=== PATIENT | female | born 1930 | race African-American/Black ===

== ENCOUNTER 2016-11-05 09:41 | Inpatient (IN) | payer MEDICARE ==
[~2016-11-05] VITALS: Ht 157.5 cm; Wt 59.0 kg
[~2016-11-05 09:41] MED LIST: AMLO5TAB2 PO; APIX2.5T PO; ASPI-482 PO; DICY10CA3 PO; DILT180C73 PO; HYDR-2869 PO; LOSA100T6 PO; LOSA25TA PO; METO25TA4 PO; TAMS0.4C97 PO; WATER PILL
[2016-11-05] MEDS ORDERED: 0.9 % SODIUM CHLORIDE 10 ML DISP.SYRIN. IV PRN (10:00)
--- NOTE | 2016-11-05 10:12 | EKG ---
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
[2016-11-05] MEDS ORDERED: IV NORMAL SALINE 1000ML BAG 1,000 ML IV SCH (10:15)
[2016-11-05] MEDS ORDERED: ASPIRIN CHEWABLE 81 MG TABLET. PO ONE (10:15)
--- NOTE | 2016-11-05 10:16 | PHYS DOC ---
Past Medical History Past Medical History: CVA, High Cholesterol, Heart Disease, Hypertension Past Surgical History: Hysterectomy, Knee Replacement Additional Past Surgical Histo: LEFT SHOULDER Alcohol Use: None Drug Use: None Adult General Chief Complaint Chief Complaint: CHEST PAIN HPI HPI This is a pleasant 86-year-old female with history of hypertension, high cholesterol, questionable history of age or fibrillation and RVR, prior endarterectomy on the left, prior CVA involving the left lower extremity who presents with exertional dyspnea the last day and chest pain that woke her up this morning described as pressure. Patient was a position of comfort resting in her bed when she described chest pressure described as a heaviness with no clear pain over the left breast. It did not radiate to her shoulder, back or neck. It did make her very short of breath with the symptoms. She had a similar episode like this a month and a half ago when she was seen and evaluated for a possible CVA and A. fib and RVR. Patient was seen by cardiology known to have coronary artery disease from prior record provided by [facility]. Patient has had prior endarterectomy of the left carotid back in 2002. Today's episodes are new and the fact that they are associated with no numbness and tingling only chest pressure described as heaviness with no nausea, vomiting, diaphoresis, lightheadedness, dizziness, URI symptoms or fevers. Patient denies any travel outside the country, denies any recent lower extremity swelling or edema. She does have a history of prior cancer in the right breast requiring only lumpectomy without chemoradiation therapy. With her history of A. fib and RVR not any anticoagulation therapy patient is at marked risk for pulmonary embolism. At this point patient has no specific point of numbness and tingling, problems with speaking, aphasia, or memory issues. At this point her chest discomfort is completely dissipated. She is a synthetic resting comfortably. Review of Systems Review of Systems Constitutional: Denies fever or chills she describes generalized fatigue and shortness breath with exertion. Eyes: Denies change in visual acuity, redness, or eye pain [] HENT: Denies nasal congestion or sore throat [] Respiratory: sHe describes significant shortness of breath on exertion. Cardiovascular: No additional information not addressed in HPI [] GI: Denies abdominal pain, nausea, vomiting, bloody stools or diarrhea [] : Denies dysuria or hematuria [] Musculoskeletal: Denies back pain or joint pain [] Integument: Denies rash or skin lesions [] Neurologic: Denies headache, focal weakness or sensory changes [] Endocrine: Denies polyuria or polydipsia [] Current Medications Current Medications Current Medications Medications (Trade) Dose Ordered Sig/Latrell Start Time Stop Time Status Last Admin Dose Admin Aspirin (Children'S Aspirin) 324 mg 1X ONCE 11/05/16 10:15 11/05/16 10:16 DC 11/05/16 10:38 324 MG Diltiazem HCl (Cardizem) 20 mg 1X ONCE 11/05/16 10:30 11/05/16 10:31 DC 11/05/16 10:41 20 MG Sodium Chloride (Normal Saline Flush) 10 ml QSHIFT PRN 11/05/16 10:00 Allergies Allergies Allergies Coded Allergies Type Severity Reaction Last Updated Verified Penicillins Allergy Intermediate Rash 05/30/13 Yes Physical Exam Physical Exam Vital signs are noted to be mildly hypertensive and very tachycardic into the 110s. She is not tachypnea or hypotensive she is not hypoxic. Constitutional: Well developed, well nourished, no acute distress, non-toxic appearance. She is not diaphoretic but mildly anxious. HENT: Normocephalic, atraumatic, bilateral external ears normal, oropharynx moist, no oral exudates, nose normal. [] Eyes: PERRLA, EOMI, conjunctiva normal, no discharge. [] Neck: He has no carotid bruits there is a well-healed scar over the left carotid artery. Neck has full range of motion Cardiovascular: Her heart has an irregular rate and rhythm with no murmurs gallops or rubs. Lungs & Thorax: Bilateral breath sounds clear to auscultation [] Abdomen: Bowel sounds normal, soft, no tenderness, no masses, no pulsatile masses. [] Skin: Warm, dry, no erythema, no rash. [] Back: No tenderness, no CVA tenderness. [] Extremities: No tenderness, no cyanosis, no clubbing, ROM intact, no edema. sHe has no Homans sign no swelling or tenderness in her calves bilaterally. Neurologic: Alert and oriented X 3, normal motor function, normal sensory function, no focal deficits noted. [] Psychologic: Affect normal, judgement normal, mood normal. [] Patient has no focal complaints. Current Patient Data Vital Signs Vital Signs Date Time Temp Pulse Resp B/P (MAP) Pulse Ox O2 Delivery O2 Flow Rate FiO2 11/05/16 11:49 84 165/78 (107) 97 Room Air 11/05/16 11:19 14 11/05/16 09:50 97.7 97.7 Lab Values Laboratory Tests Test 11/05/16 11:00 White Blood Count 8.9 x10^3/uL (4.0-11.0) Red Blood Count 4.25 x10^6/uL (3.50-5.40) Hemoglobin 11.9 g/dL (12.0-15.5) L Hematocrit 36.9 % (36.0-47.0) Mean Corpuscular Volume 87 fL (79-100) Mean Corpuscular Hemoglobin 28 pg (25-35) Mean Corpuscular Hemoglobin Concent 32 g/dL (31-37) Red Cell Distribution Width 14.6 % (11.5-14.5) H Platelet Count 221 x10^3/uL (140-400) Neutrophils (%) (Auto) 68 % (31-73) Lymphocytes (%) (Auto) 22 % (24-48) L Monocytes (%) (Auto) 9 % (0-9) Eosinophils (%) (Auto) 1 % (0-3) Basophils (%) (Auto) 0 % (0-3) Neutrophils # (Auto) 6.1 x10^3uL (1.8-7.7) Lymphocytes # (Auto) 1.9 x10^3/uL (1.0-4.8) Monocytes # (Auto) 0.8 x10^3/uL (0.0-1.1) Eosinophils # (Auto) 0.0 x10^3/uL (0.0-0.7) Basophils # (Auto) 0.0 x10^3/uL (0.0-0.2) Sodium Level 143 mmol/L (136-145) Potassium Level 3.7 mmol/L (3.5-5.1) Chloride Level 107 mmol/L (98-107) Carbon Dioxide Level 24 mmol/L (21-32) Anion Gap 12 (6-14) Blood Urea Nitrogen 19 mg/dL (7-20) Creatinine 0.8 mg/dL (0.6-1.0) Estimated GFR (Cockcroft-Gault) 82.7 Glucose Level 113 mg/dL (70-99) H Calcium Level 9.6 mg/dL (8.5-10.1) Magnesium Level 1.9 mg/dL (1.8-2.4) Total Bilirubin 0.2 mg/dL (0.2-1.0) Direct Bilirubin 0.1 mg/dL (0.0-0.2) Aspartate Amino Transferase (AST) 16 U/L (15-37) Alanine Aminotransferase (ALT) 17 U/L (14-59) Alkaline Phosphatase 95 U/L (46-116) Creatine Kinase 32 U/L (26-192) Creatine Kinase MB (Mass) 0.6 ng/mL (0.0-3.6) Creatine Kinase MB Relative Index 1.9 % (0-4) Troponin I Quantitative 0.021 ng/mL (0.000-0.055) FQ-Wvh-[id number]-Type Natriuretic Peptide 1228 pg/mL (0-449) H Total Protein 7.6 g/dL (6.4-8.2) Albumin 3.5 g/dL (3.4-5.0) Lipase 204 U/L (73-393) Thyroid Stimulating Hormone (TSH) 1.547 uIU/mL (0.358-3.74) Laboratory Tests 11/05/16 11:00 Laboratory Tests 11/05/16 11:00 EKG EKG [] EKG read by Dr. Morgan. At 9:53 AM demonstrates 11/05/2016 a irregular irregular rhythm likely A. fib with heart rate of 105. Was not identified. There is a question will sawtooth pattern located in the one this may represent atrial flutter but given her heart rate is likely A. fib. She also has a normal QTC at 432 and QRS width of 72 which is normal. There is no ST segment or T- wave elevations or inversions consistent with acute coronary ischemia Radiology/Procedures Radiology/Procedures [] [address] [place], [place] [id number] IMAGING REPORT Signed PATIENT: KAM JOHNSTON ACCOUNT: [id number] : 1930 LOCATION: [address] [place] [address] AGE: 86 SEX: F EXAM STATUS: ADM IN ORD. PHYSICIAN: YRIS LABOY APRN REASON: AFIB, CVA syndrome PROCEDURE: ECHOCARDIOGRAM W BUBBLE STUDY APPROVED REPORT EXAM: Two-dimensional and M-mode echocardiogram with Doppler, color Doppler with contrast. Other Information Quality : Average Rhythm : Atrial Flutter INDICATION CVA/TIA Echo Enhancing Agent Indication: Rule Out Septal Defect Agent/Amount Used: Agitated Saline 8mL 2D DIMENSIONS RVDd 3.0 (2.9-3.5cm) Left Atrium(2D) 3.7 (1.6-4.0cm) IVSd 1.5 (0.7-1.1cm) Aortic Root(2D) 2.7 (2.0-3.7cm) LVDd 3.3 (3.9-5.9cm) LVOT Diameter 1.9 (1.8-2.4cm) PWd 1.4 (0.7-1.1cm) LVDs 2.3 (2.5-4.0cm) FS (%) 29.7 % SV 24.9 ml LVEF(%) 58.1 (>50%) Aortic Valve AoV Peak Mayank. 226.9cm/s AoV VTI 41.0cm AO Peak GR. 20.6mmHg LVOT VTI 14.17cm AO Mean GR. 10mmHg JORGE (VTI) 1.00cm2 Mitral Valve MV E Velocity 120.1cm/s MV E Peak Gr. 5mmHg MV DECEL TIME 220ms MV PHT 50ms MVA (PHT) 4.40cm2 Tricuspid Valve TR P. Velocity 293cm/s RAP ESTIMATE 3mmHg TR Peak Gr. 34mmHg RVSP 37mmHg LEFT VENTRICLE The left ventricle is normal size. There is mild concentric left ventricular hypertrophy. Left ventricle systolic function is normal. The Ejection Fraction is 55-60%. There is normal LV segmental wall motion. Unable to assess diastolic function. There is no ventricular septal defect visualized. RIGHT VENTRICLE The right ventricle is normal size. The right ventricular systolic function is normal. ATRIA The left atrium size is normal. The right atrium size is normal. The interatrial septum is intact with no evidence for an atrial septal defect or patent foramen ovale as noted on 2-D or Doppler imaging. Injection of bubbles documented no interatrial shunt. AORTIC VALVE The aortic valve is calcified and displays decreased opening. Doppler and Color Flow revealed trace aortic regurgitation. Calculated aortic valve area is 1.0 cm2 with maximum pressure gradient of 21mmHg and mean pressure gradient of 10 mmHg. There is mild to moderate valvular aortic stenosis. MITRAL VALVE Mitral annular calcification is moderate. The mitral valve leaflets are calcified. There is no mitral valve stenosis. Doppler and Color Flow revealed mild mitral regurgitation. TRICUSPID VALVE The tricuspid valve is normal in structure and function. Doppler and Color Flow revealed mild tricuspid regurgitation. The PA pressure was estimated at 37 mmHg. There is no tricuspid valve stenosis. PULMONIC VALVE The pulmonic valve is not well visualized. Doppler and Color Flow revealed no pulmonic valvular regurgitation. There is no pulmonic valvular stenosis. GREAT VESSELS The aortic root is normal in size. The ascending aorta is normal in size. The IVC is normal in size and collapses >50% with inspiration. PERICARDIAL EFFUSION There is no evidence of significant pericardial effusion. Critical Notification Critical Value: No <Conclusion> The left ventricle is normal size. Left ventricle systolic function is normal. The Ejection Fraction is 55-60%. There is mild concentric left ventricular hypertrophy. The interatrial septum is intact with no evidence for an atrial septal defect or patent foramen ovale as noted on 2-D or Doppler imaging. Injection of bubbles documented no interatrial shunt. Calculated aortic valve area is 1.0 cm2 with maximum pressure gradient of 21mmHg and mean pressure gradient of 10 mmHg. There is mild to moderate valvular aortic stenosis. Doppler and Color Flow revealed trace aortic regurgitation. Doppler and Color Flow revealed mild mitral regurgitation. Doppler and Color Flow revealed mild tricuspid regurgitation. The PA pressure was estimated at 37 mmHg. DICTATED and SIGNED BY: AYSE MELGAR MD DATE: 09/27/16 1740 CC: YRIS LABOY APRN; AYSE MELGAR MD; MARLENY BALDERAS MD; FENG NUNES MD ~ IMAGING REPORT Signed PATIENT: KAM JOHNSTON ACCOUNT: [id number] : 1930 LOCATION: ER AGE: 86 SEX: F EXAM STATUS: PRE ER ORD. PHYSICIAN: JOSE MORGAN MD REASON: chest pain PROCEDURE: PORTABLE CHEST 1V Indication chest pain. A single view of the chest was obtained. Comparison is made to an examination 09/27/2016. Heart size is slightly enlarged but unchanged. There is no gross congestive heart failure. There is no consolidated pneumonia significant pleural fluid collection or pneumothorax. Again there is a possible nodule in the right upper lobe. The appearance is unchanged relative to the previous plain film exam. Continued follow-up establishing stability advised. Left shoulder prosthesis and degenerative changes about the right are noted. IMPRESSION: No acute or focal process is seen in the chest DICTATED and SIGNED BY: CASE BOYLE MD DATE: 11/05/16 1029 CC: JOSE MORGAN MD; MARLENY BALDERAS MD ~ Course & Med Decision Making Course & Med Decision Making Pertinent Labs and Imaging studies reviewed. (See chart for details) Differential diagnosis: Acute myocardial ischemia, heart failure, cardiac tamponade, bronchospasm, pulmonary embolism, pneumothorax, pulmonary infection i.e. bronchitis or pneumonia, upper airway obstruction, anaphylaxis, aspiration , psychogenic, pulmonary contusion, toxidrome, pneumomediastinum, noncardiogenic pulmonary edema or ARDS, COPD, tuberculosis, cystic fibrosis, asthma, high altitude pulmonary edema, valvular dysfunction, cardiac dysrhythmia , stroke, neuromuscular diseases like myasthenia gravis gravis, ALS, Guillain- Miller syndrome, metabolic acidosis to include diabetic ketoacidosis, sepsis, and obstructive disorders like massive obesity considered upon arrival given her history of recent stroke and A. fib and RVR. Patient also have a screening exam done for possible pulmonary embolism to include a CT angiogram of the chest if she did not fact take her antibiotic correlation medications. Was started on Eliquis by cardiology. Impression presents with chest discomfort described as pressure and exertional dyspnea. She only had about an hour with the symptoms prior to arrival. With her other medical problems although she is on Eliquis that she is a caustic presentation of a PE. Her symptoms are intermittent to completely resolved at this time. My concern is actually cardiac ischemia based on a fixed lesion is progressively getting worse. 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 Did review echocardiogram done on 27 September this year. It demonstrated no acute abnormalities. PPatient tells me that their symptoms given during CC are improved. We reviewed labs and radiology reports with patient and any family at bedside. Time is now 11:40 am She is echocardiogram unremarkable, chest x-ray unremarkable, negative troponin , negative proBNP She is pain-free at this time. Furnace Combustion Tester note: Paged for internal medicine at 12:30 PM Furnace Combustion Tester called at of the service Dr. Hutton Consult called back at 12:38 Discussed the case I presented and they agreed with admission. Time of acceptance 12:38 Impression: Dyspnea on exertion possible cardiac ischemia. Disposition: Admission to the hospital with cardiology evaluation Dragon Disclaimer Dragon Disclaimer This electronic medical record was generated, in whole or in part, using a voice recognition dictation system. Departure Departure Impression: Primary Impression: Chest pain Additional Impressions: Hypertension Dyspnea on exertion Disposition: ADMITTED INPATIENT Admitting Physician: Cassia Hutton Condition: GUARDED Referrals: MARLENY BALDERAS MD (PCP) Problem Qualifiers JOSE MORGAN MD Nov 05, 2016 10:16
[2016-11-05] MEDS ORDERED: dilTIAZem IV PUSH 25 MG/5 ML VIAL IVP ONE (10:30)
--- NOTE | 2016-11-05 10:34 | RAD ---
Indication chest pain. A single view of the chest was obtained. Comparison is made to an examination 09/27/2016. Heart size is slightly enlarged but unchanged. There is no gross congestive heart failure. There is no consolidated pneumonia significant pleural fluid collection or pneumothorax. Again there is a possible nodule in the right upper lobe. The appearance is unchanged relative to the previous plain film exam. Continued follow-up establishing stability advised. Left shoulder prosthesis and degenerative changes about the right are noted. IMPRESSION: No acute or focal process is seen in the chest
[2016-11-05 11:17] LABS: BASO % 0 % (0-3); EOS % 1 % (0-3); HEMATOCRIT 36.9 % (36.0-47.0); HEMOGLOBIN 11.9 g/dL (12.0-15.5); LYMPH # 1.9 x10^3/uL (1.0-4.8); LYMPH % 22 % (24-48); MEAN CORPUSCULAR HEMOGLOBIN 28 pg (25-35); MEAN CORPUSCULAR HGB CONC 32 g/dL (31-37); MEAN CORPUSCULAR VOLUME 87 fL (79-100); MONO % 9 % (0-9); NEUT % 68 % (31-73); PLATELET COUNT 221 x10^3/uL (140-400); RED BLOOD COUNT 4.25 x10^6/uL (3.50-5.40); RED CELL DISTRIBUTION WIDTH 14.6 % (11.5-14.5); WHITE BLOOD COUNT 8.9 x10^3/uL (4.0-11.0)
[2016-11-05 11:33] LABS: CALCIUM 9.6 mg/dL (8.5-10.1); CREATININE 0.8 mg/dL (0.6-1.0); GFR 82.7; POTASSIUM 3.7 mmol/L (3.5-5.1)
[2016-11-05 11:39] LABS: ALBUMIN 3.5 g/dL (3.4-5.0); DIRECT BILIRUBIN 0.1 mg/dL (0.0-0.2); MAGNESIUM 1.9 mg/dL (1.8-2.4); TOTAL BILIRUBIN 0.2 mg/dL (0.2-1.0); TOTAL PROTEIN 7.6 g/dL (6.4-8.2)
[2016-11-05 11:46] LABS: CKMB MASS 0.6 ng/mL (0.0-3.6)
[2016-11-05 12:37] LABS: BILIRUBIN,URINE NEGATIVE (NEG); GLUCOSE,URINE NEGATIVE (NEG); NITRITE,URINE NEGATIVE (NEG); PH,URINE 6.5; PROTEIN,URINE NEGATIVE (NEG-TRACE); UROBILINOGEN,URINE 0.2 mg/dL (0.2 mg/dL)
[2016-11-05] MEDS: IV NORMAL SALINE 1000ML BAG 1,000 ML IV SCH (12:42)
[2016-11-05 12:45] LABS: BACTERIA,URINE FEW /HPF (0-FEW); RBC,URINE 0 /HPF (0-2); SQUAMOUS EPITHELIAL CELL,UR FEW /LPF
[2016-11-05] MEDS ORDERED: fentaNYL PF VIAL 100 MCG/2 ML VIAL IV PRN (12:45)
[2016-11-05] MEDS ORDERED: ASPI-630 PO (14:47)
[2016-11-05] MEDS ORDERED: AMLO2.5T PO (14:47)
[2016-11-05] MEDS ORDERED: SIMV20TA3 PO (14:47)
[2016-11-05] MEDS ORDERED: LOSA100T6 PO (14:47)
[2016-11-05 15:00] VITALS: BP 105/69
[2016-11-05 16:09] VITALS: BP 105/69
--- NOTE | 2016-11-05 16:55 | PDOC1 ---
History and Physical Date of Admission Date of Admission 11/05/16 Identification/Chief Complaint Chief Complaint sob Problems: Source Source: Chart review, Patient History of Present Illness History of Present Illness HPI This is a pleasant 86-year-old female with history of hypertension, high cholesterol, questionable history of age or fibrillation and RVR, prior endarterectomy on the left, prior CVA involving the left lower extremity cames for sob today. Pt was here 1 month ago for left side weakness, with right side acute stroke and weakness resolved. echo was unremarkable except . She feels some exertional sob, with chest pain, pressure feeling, no diaphoresis , N/V. Patient has had prior endarterectomy of the left carotid back in 2002. pt looks very calm to me. Past Medical History Cardiovascular: HTN Pulmonary: No pertinent hx CENTRAL NERVOUS SYSTEM: Other GI: Irritable bowel disease Heme/Onc: Cancer Hepatobiliary: No pertinent hx Psych: No pertinent hx Rheumatologic: No pertinent hx Infectious disease: No pertinent hx Renal/: Chronic renal insuff Endocrine: No pertinent hx Past Surgical History Past Surgical History: Total knee replacement, No pertinent history Family History Family History: Hypertension Social History Smoke: No ALCOHOL: none Drugs: None Current Problem List Problem List Problems Medical Problems: (1) Chest pain Status: Acute (2) Dyspnea on exertion Status: Acute (3) Hypertension Status: Acute Current Medications Current Medications Current Medications Medications (Trade) Dose Ordered Sig/Latrell Start Time Stop Time Status Last Admin Dose Admin Aspirin (Children'S Aspirin) 324 mg 1X ONCE 11/05/16 10:15 11/05/16 10:16 DC 11/05/16 10:38 324 MG Diltiazem HCl (Cardizem 24hr Cd) 180 mg DAILY 11/06/16 09:00 Diltiazem HCl (Cardizem) 20 mg 1X ONCE 11/05/16 10:30 11/05/16 10:31 DC 11/05/16 10:41 20 MG Diltiazem HCl 125 mg/Dextrose 125 ml @ 0 mls/hr CONT PRN 11/05/16 15:00 Fentanyl Citrate (Fentanyl 2ml Vial) 50 mcg PRN Q2HR PRN 11/05/16 12:45 11/06/16 12:44 Hydralazine HCl (Apresoline) 50 mg TID 11/05/16 21:00 Metoprolol Tartrate (Lopressor) 25 mg BID 11/05/16 21:00 Ondansetron HCl (Zofran) 4 mg PRN Q8HRS PRN 11/05/16 12:45 11/06/16 12:44 Sodium Chloride 1,000 ml @ 80 mls/hr [id number] 11/05/16 12:42 11/06/16 12:41 Sodium Chloride (Normal Saline Flush) 10 ml QSHIFT PRN 11/05/16 10:00 Allergies Allergies Allergies Coded Allergies Type Severity Reaction Last Updated Verified Penicillins Allergy Intermediate Rash 05/30/13 Yes ROS Review of System CONSTITUTIONAL: No fever or chills EYES: No recent changes SKIN: No rash or itching CARDIOVASCULAR: No chest pain, syncope, palpitations, or edema RESPIRATORY: No SOB or cough GASTROINTESTINAL: No nausea, vomiting or abdominal pain NEUROLOGICAL: No headaches or weakness ENDOCRINE: No cold or heat intolerance GENITOURINARY: No urgency or frequency of urination MUSCULOSKELETAL: No back pain or joint pain LYMPHATICS: No enlarged lymph nodes PSYCHIATRIC: No anxiety or depression Physical Exam Physical Exam GEN.: No apparent distress. Alert and oriented. HEENT: Head is normocephalic, atraumatic NECK: Supple. LUNGS: Clear to auscultation. HEART: RRR, S1, S2 present. Peripheral pulses intact ABDOMEN: Soft, nontender. Positive bowel sounds. EXTREMITIES: Without any cyanosis. NEUROLOGIC: Normal speech, normal tone PSYCHIATRIC: Normal affect, normal mood. SKIN: No ulcerations Vitals Vitals Vital Signs Date Time Temp Pulse Resp B/P (MAP) Pulse Ox O2 Delivery O2 Flow Rate FiO2 11/05/16 16:09 97.8 105 18 105/69 (81) 99 Room Air 97.8 Labs Labs Laboratory Tests Test 11/05/16 11:00 11/05/16 12:25 White Blood Count 8.9 x10^3/uL (4.0-11.0) Red Blood Count 4.25 x10^6/uL (3.50-5.40) Hemoglobin 11.9 g/dL (12.0-15.5) Hematocrit 36.9 % (36.0-47.0) Mean Corpuscular Volume 87 fL (79-100) Mean Corpuscular Hemoglobin 28 pg (25-35) Mean Corpuscular Hemoglobin Concent 32 g/dL (31-37) Red Cell Distribution Width 14.6 % (11.5-14.5) Platelet Count 221 x10^3/uL (140-400) Neutrophils (%) (Auto) 68 % (31-73) Lymphocytes (%) (Auto) 22 % (24-48) Monocytes (%) (Auto) 9 % (0-9) Eosinophils (%) (Auto) 1 % (0-3) Basophils (%) (Auto) 0 % (0-3) Neutrophils # (Auto) 6.1 x10^3uL (1.8-7.7) Lymphocytes # (Auto) 1.9 x10^3/uL (1.0-4.8) Monocytes # (Auto) 0.8 x10^3/uL (0.0-1.1) Eosinophils # (Auto) 0.0 x10^3/uL (0.0-0.7) Basophils # (Auto) 0.0 x10^3/uL (0.0-0.2) Sodium Level 143 mmol/L (136-145) Potassium Level 3.7 mmol/L (3.5-5.1) Chloride Level 107 mmol/L (98-107) Carbon Dioxide Level 24 mmol/L (21-32) Anion Gap 12 (6-14) Blood Urea Nitrogen 19 mg/dL (7-20) Creatinine 0.8 mg/dL (0.6-1.0) Estimated GFR (Cockcroft-Gault) 82.7 Glucose Level 113 mg/dL (70-99) Calcium Level 9.6 mg/dL (8.5-10.1) Magnesium Level 1.9 mg/dL (1.8-2.4) Total Bilirubin 0.2 mg/dL (0.2-1.0) Direct Bilirubin 0.1 mg/dL (0.0-0.2) Aspartate Amino Transf (AST/SGOT) 16 U/L (15-37) Alanine Aminotransferase (ALT/SGPT) 17 U/L (14-59) Alkaline Phosphatase 95 U/L (46-116) Creatine Kinase 32 U/L (26-192) Creatine Kinase MB (Mass) 0.6 ng/mL (0.0-3.6) Creatine Kinase MB Relative Index 1.9 % (0-4) Troponin I Quantitative 0.021 ng/mL (0.000-0.055) UI-Req-E-Type Natriuretic Peptide 1228 pg/mL (0-449) Total Protein 7.6 g/dL (6.4-8.2) Albumin 3.5 g/dL (3.4-5.0) Lipase 204 U/L (73-393) Thyroid Stimulating Hormone (TSH) 1.547 uIU/mL (0.358-3.74) Urine Collection Type Unknown Urine Color Yellow Urine Clarity Clear Urine pH 6.5 Urine Specific [place] <=1.005 Urine Protein Negative mg/dL (NEG-TRACE) Urine Glucose (UA) Negative mg/dL (NEG) Urine Ketones (Stick) Negative mg/dL (NEG) Urine Blood Negative (NEG) Urine Nitrite Negative (NEG) Urine Bilirubin Negative (NEG) Urine Urobilinogen Dipstick 0.2 mg/dL (0.2 mg/dL) Urine Leukocyte Esterase Small (NEG) Urine RBC 0 /HPF (0-2) Urine WBC 5-10 /HPF (0-4) Urine Squamous Epithelial Cells Few /LPF Urine Bacteria Few /HPF (0-FEW) Laboratory Tests Test 11/05/16 11:00 11/05/16 12:25 White Blood Count 8.9 x10^3/uL (4.0-11.0) Red Blood Count 4.25 x10^6/uL (3.50-5.40) Hemoglobin 11.9 g/dL (12.0-15.5) Hematocrit 36.9 % (36.0-47.0) Mean Corpuscular Volume 87 fL (79-100) Mean Corpuscular Hemoglobin 28 pg (25-35) Mean Corpuscular Hemoglobin Concent 32 g/dL (31-37) Red Cell Distribution Width 14.6 % (11.5-14.5) Platelet Count 221 x10^3/uL (140-400) Neutrophils (%) (Auto) 68 % (31-73) Lymphocytes (%) (Auto) 22 % (24-48) Monocytes (%) (Auto) 9 % (0-9) Eosinophils (%) (Auto) 1 % (0-3) Basophils (%) (Auto) 0 % (0-3) Neutrophils # (Auto) 6.1 x10^3uL (1.8-7.7) Lymphocytes # (Auto) 1.9 x10^3/uL (1.0-4.8) Monocytes # (Auto) 0.8 x10^3/uL (0.0-1.1) Eosinophils # (Auto) 0.0 x10^3/uL (0.0-0.7) Basophils # (Auto) 0.0 x10^3/uL (0.0-0.2) Sodium Level 143 mmol/L (136-145) Potassium Level 3.7 mmol/L (3.5-5.1) Chloride Level 107 mmol/L (98-107) Carbon Dioxide Level 24 mmol/L (21-32) Anion Gap 12 (6-14) Blood Urea Nitrogen 19 mg/dL (7-20) Creatinine 0.8 mg/dL (0.6-1.0) Estimated GFR (Cockcroft-Gault) 82.7 Glucose Level 113 mg/dL (70-99) Calcium Level 9.6 mg/dL (8.5-10.1) Magnesium Level 1.9 mg/dL (1.8-2.4) Total Bilirubin 0.2 mg/dL (0.2-1.0) Direct Bilirubin 0.1 mg/dL (0.0-0.2) Aspartate Amino Transf (AST/SGOT) 16 U/L (15-37) Alanine Aminotransferase (ALT/SGPT) 17 U/L (14-59) Alkaline Phosphatase 95 U/L (46-116) Creatine Kinase 32 U/L (26-192) Creatine Kinase MB (Mass) 0.6 ng/mL (0.0-3.6) Creatine Kinase MB Relative Index 1.9 % (0-4) Troponin I Quantitative 0.021 ng/mL (0.000-0.055) AV-Vzl-[id number]-Type Natriuretic Peptide 1228 pg/mL (0-449) Total Protein 7.6 g/dL (6.4-8.2) Albumin 3.5 g/dL (3.4-5.0) Lipase 204 U/L (73-393) Thyroid Stimulating Hormone (TSH) 1.547 uIU/mL (0.358-3.74) Urine Collection Type Unknown Urine Color Yellow Urine Clarity Clear Urine pH 6.5 Urine Specific [place] <=1.005 Urine Protein Negative mg/dL (NEG-TRACE) Urine Glucose (UA) Negative mg/dL (NEG) Urine Ketones (Stick) Negative mg/dL (NEG) Urine Blood Negative (NEG) Urine Nitrite Negative (NEG) Urine Bilirubin Negative (NEG) Urine Urobilinogen Dipstick 0.2 mg/dL (0.2 mg/dL) Urine Leukocyte Esterase Small (NEG) Urine RBC 0 /HPF (0-2) Urine WBC 5-10 /HPF (0-4) Urine Squamous Epithelial Cells Few /LPF Urine Bacteria Few /HPF (0-FEW) VTE Prophylaxis Ordered VTE Prophylaxis Devices: Yes VTE Pharmacological Prophylaxi: No Assessment/Plan Assessment/Plan dyspnea, 2/2 possibly chest pain, non specific, , could 2/2 dyspnea afib htn accelerated hld recent CVA, left side weakness almost resolved plan: card consult cycle ce cont home meds on eliquis for afib ESE AMADO MD Nov 05, 2016 16:55
[2016-11-05] MEDS ORDERED: ONDANSETRON PF 4 MG/2 ML VIAL. IV PRN (17:00)
[2016-11-05] MEDS ORDERED: traMADol 50 MG TABLET PO PRN (17:00)
[2016-11-05] MEDS ORDERED: MORPHINE SULFATE 2 MG/ML DISP.SYRIN. IV PRN (17:00)
[2016-11-05] MEDS ORDERED: hydrALAZINE 20 MG/ML VIAL. IVP PRN (17:00)
[2016-11-05] MEDS ORDERED: DOCUSATE SODIUM 100 MG CAPSULE. PO PRN (17:00)
[2016-11-05 19:05] VITALS: BP 142/62
[2016-11-05] MEDS: TAMSULOSIN 0.4 MG CAP.ER.24H. PO SCH (20:43)
[2016-11-05] MEDS: APIXABAN 2.5 MG TABLET. PO SCH (20:43)
[2016-11-05] MEDS: SIMVASTATIN 20 MG TABLET PO SCH (20:43)
[2016-11-05] MEDS ORDERED: METOPROLOL TART IMMED RELEASE 25 MG TABLET. PO SCH ×2 (21:00)
[2016-11-05] MEDS: ACETAMINOPHEN 325 MG TABLET. PO PRN (22:35)
[2016-11-05 23:05] VITALS: BP 147/65
[2016-11-06] VITALS (8 sets, daily range): BP systolic 96–174; BP diastolic 49–80
[2016-11-06] MEDS: IV NORMAL SALINE 1000ML BAG 1,000 ML IV SCH (01:12)
[2016-11-06] MEDS: ACETAMINOPHEN 325 MG TABLET. PO PRN (05:02)
[2016-11-06] MEDS: ONDANSETRON PF 4 MG/2 ML VIAL. IV PRN ×2 (05:10→09:25)
[2016-11-06 05:31] LABS: BASO # 0.1 x10^3/uL (0.0-0.2); BASO % 1 % (0-3); EOS % 1 % (0-3); HEMATOCRIT 36.3 % (36.0-47.0); HEMOGLOBIN 11.6 g/dL (12.0-15.5); LYMPH # 2.1 x10^3/uL (1.0-4.8); LYMPH % 23 % (24-48); MEAN CORPUSCULAR HEMOGLOBIN 28 pg (25-35); MEAN CORPUSCULAR HGB CONC 32 g/dL (31-37); MEAN CORPUSCULAR VOLUME 88 fL (79-100); MONO % 13 % (0-9); NEUT % 62 % (31-73); PLATELET COUNT 223 x10^3/uL (140-400); RED BLOOD COUNT 4.14 x10^6/uL (3.50-5.40); RED CELL DISTRIBUTION WIDTH 15.2 % (11.5-14.5); WHITE BLOOD COUNT 8.9 x10^3/uL (4.0-11.0)
[2016-11-06 05:51] LABS: CREATININE 0.9 mg/dL (0.6-1.0); GFR 72.2; POTASSIUM 3.7 mmol/L (3.5-5.1)
[2016-11-06] MEDS: ASPIRIN CHEWABLE 81 MG TABLET. PO SCH (08:00)
[2016-11-06] MEDS: LOSARTAN POTASSIUM 50 MG TABLET. PO SCH (09:00)
[2016-11-06] MEDS: APIXABAN 2.5 MG TABLET. PO SCH ×2 (09:09→21:27)
[2016-11-06] MEDS ORDERED: DIGOXIN IV 500 MCG/2 ML AMPUL. IV ONE (09:30)
[2016-11-06] MEDS: METOPROLOL TART IMMED RELEASE 25 MG TABLET. PO SCH ×2 (10:42→21:27)
[2016-11-06] MEDS ORDERED: IV NORMAL SALINE 1000ML BAG 1,000 ML IV ONE (11:00)
--- NOTE | 2016-11-06 15:14 | PDOC ---
PROGRESS NOTES Chief Complaint Chief Complaint dyspnea, CHF aortic stenosis chest pain, non specific, , afib, rate controlled, htn accelerated on admit hld prior CVA, left side hemiparesis History of Present Illness History of Present Illness card consult cycle ce cont home meds on eliquis for afib OOB to chair, PT and OT Vitals Vitals Vital Signs Date Time Temp Pulse Resp B/P (MAP) Pulse Ox O2 Delivery O2 Flow Rate FiO2 11/06/16 11:00 98.0 64 18 120/62 (81) 98 Room Air 98.0 Physical Exam General: Alert, Oriented X3, Cooperative, No acute distress Heart: Regular rate Lungs: Clear Abdomen: Normal bowel sounds Extremities: No clubbing, No cyanosis Skin: No rashes, No significant lesion Labs LABS Laboratory Tests Test 11/05/16 18:45 11/06/16 00:40 11/06/16 05:00 Troponin I Quantitative 0.070 ng/mL (0.000-0.055) 0.072 ng/mL (0.000-0.055) White Blood Count 8.9 x10^3/uL (4.0-11.0) Red Blood Count 4.14 x10^6/uL (3.50-5.40) Hemoglobin 11.6 g/dL (12.0-15.5) Hematocrit 36.3 % (36.0-47.0) Mean Corpuscular Volume 88 fL (79-100) Mean Corpuscular Hemoglobin 28 pg (25-35) Mean Corpuscular Hemoglobin Concent 32 g/dL (31-37) Red Cell Distribution Width 15.2 % (11.5-14.5) Platelet Count 223 x10^3/uL (140-400) Neutrophils (%) (Auto) 62 % (31-73) Lymphocytes (%) (Auto) 23 % (24-48) Monocytes (%) (Auto) 13 % (0-9) Eosinophils (%) (Auto) 1 % (0-3) Basophils (%) (Auto) 1 % (0-3) Neutrophils # (Auto) 5.5 x10^3uL (1.8-7.7) Lymphocytes # (Auto) 2.1 x10^3/uL (1.0-4.8) Monocytes # (Auto) 1.2 x10^3/uL (0.0-1.1) Eosinophils # (Auto) 0.1 x10^3/uL (0.0-0.7) Basophils # (Auto) 0.1 x10^3/uL (0.0-0.2) Sodium Level 144 mmol/L (136-145) Potassium Level 3.7 mmol/L (3.5-5.1) Chloride Level 109 mmol/L (98-107) Carbon Dioxide Level 25 mmol/L (21-32) Anion Gap 10 (6-14) Blood Urea Nitrogen 24 mg/dL (7-20) Creatinine 0.9 mg/dL (0.6-1.0) Estimated GFR (Cockcroft-Gault) 72.2 Glucose Level 77 mg/dL (70-99) Calcium Level 9.0 mg/dL (8.5-10.1) Review of Systems Review of Systems no n.v.d Assessment and Plan Assessmemt and Plan Problems Medical Problems: (1) Chest pain Status: Acute (2) Dyspnea on exertion Status: Acute (3) Hypertension Status: Acute Problems: Comment Review of Relevant I have reviewed the following items christopher (where applicable) has been applied. Labs Laboratory Tests Test 11/05/16 11:00 11/05/16 12:25 11/05/16 18:45 11/06/16 00:40 White Blood Count 8.9 x10^3/uL (4.0-11.0) Red Blood Count 4.25 x10^6/uL (3.50-5.40) Hemoglobin 11.9 g/dL (12.0-15.5) Hematocrit 36.9 % (36.0-47.0) Mean Corpuscular Volume 87 fL (79-100) Mean Corpuscular Hemoglobin 28 pg (25-35) Mean Corpuscular Hemoglobin Concent 32 g/dL (31-37) Red Cell Distribution Width 14.6 % (11.5-14.5) Platelet Count 221 x10^3/uL (140-400) Neutrophils (%) (Auto) 68 % (31-73) Lymphocytes (%) (Auto) 22 % (24-48) Monocytes (%) (Auto) 9 % (0-9) Eosinophils (%) (Auto) 1 % (0-3) Basophils (%) (Auto) 0 % (0-3) Neutrophils # (Auto) 6.1 x10^3uL (1.8-7.7) Lymphocytes # (Auto) 1.9 x10^3/uL (1.0-4.8) Monocytes # (Auto) 0.8 x10^3/uL (0.0-1.1) Eosinophils # (Auto) 0.0 x10^3/uL (0.0-0.7) Basophils # (Auto) 0.0 x10^3/uL (0.0-0.2) Sodium Level 143 mmol/L (136-145) Potassium Level 3.7 mmol/L (3.5-5.1) Chloride Level 107 mmol/L (98-107) Carbon Dioxide Level 24 mmol/L (21-32) Anion Gap 12 (6-14) Blood Urea Nitrogen 19 mg/dL (7-20) Creatinine 0.8 mg/dL (0.6-1.0) Estimated GFR (Cockcroft-Gault) 82.7 Glucose Level 113 mg/dL (70-99) Calcium Level 9.6 mg/dL (8.5-10.1) Magnesium Level 1.9 mg/dL (1.8-2.4) Total Bilirubin 0.2 mg/dL (0.2-1.0) Direct Bilirubin 0.1 mg/dL (0.0-0.2) Aspartate Amino Transf (AST/SGOT) 16 U/L (15-37) Alanine Aminotransferase (ALT/SGPT) 17 U/L (14-59) Alkaline Phosphatase 95 U/L (46-116) Creatine Kinase 32 U/L (26-192) Creatine Kinase MB (Mass) 0.6 ng/mL (0.0-3.6) Creatine Kinase MB Relative Index 1.9 % (0-4) Troponin I Quantitative 0.021 ng/mL (0.000-0.055) 0.070 ng/mL (0.000-0.055) 0.072 ng/mL (0.000-0.055) WP-Vnv-N-Type Natriuretic Peptide 1228 pg/mL (0-449) Total Protein 7.6 g/dL (6.4-8.2) Albumin 3.5 g/dL (3.4-5.0) Lipase 204 U/L (73-393) Thyroid Stimulating Hormone (TSH) 1.547 uIU/mL (0.358-3.74) Urine Collection Type Unknown Urine Color Yellow Urine Clarity Clear Urine pH 6.5 Urine Specific [place] <=1.005 Urine Protein Negative mg/dL (NEG-TRACE) Urine Glucose (UA) Negative mg/dL (NEG) Urine Ketones (Stick) Negative mg/dL (NEG) Urine Blood Negative (NEG) Urine Nitrite Negative (NEG) Urine Bilirubin Negative (NEG) Urine Urobilinogen Dipstick 0.2 mg/dL (0.2 mg/dL) Urine Leukocyte Esterase Small (NEG) Urine RBC 0 /HPF (0-2) Urine WBC 5-10 /HPF (0-4) Urine Squamous Epithelial Cells Few /LPF Urine Bacteria Few /HPF (0-FEW) Test 11/06/16 05:00 White Blood Count 8.9 x10^3/uL (4.0-11.0) Red Blood Count 4.14 x10^6/uL (3.50-5.40) Hemoglobin 11.6 g/dL (12.0-15.5) Hematocrit 36.3 % (36.0-47.0) Mean Corpuscular Volume 88 fL (79-100) Mean Corpuscular Hemoglobin 28 pg (25-35) Mean Corpuscular Hemoglobin Concent 32 g/dL (31-37) Red Cell Distribution Width 15.2 % (11.5-14.5) Platelet Count 223 x10^3/uL (140-400) Neutrophils (%) (Auto) 62 % (31-73) Lymphocytes (%) (Auto) 23 % (24-48) Monocytes (%) (Auto) 13 % (0-9) Eosinophils (%) (Auto) 1 % (0-3) Basophils (%) (Auto) 1 % (0-3) Neutrophils # (Auto) 5.5 x10^3uL (1.8-7.7) Lymphocytes # (Auto) 2.1 x10^3/uL (1.0-4.8) Monocytes # (Auto) 1.2 x10^3/uL (0.0-1.1) Eosinophils # (Auto) 0.1 x10^3/uL (0.0-0.7) Basophils # (Auto) 0.1 x10^3/uL (0.0-0.2) Sodium Level 144 mmol/L (136-145) Potassium Level 3.7 mmol/L (3.5-5.1) Chloride Level 109 mmol/L (98-107) Carbon Dioxide Level 25 mmol/L (21-32) Anion Gap 10 (6-14) Blood Urea Nitrogen 24 mg/dL (7-20) Creatinine 0.9 mg/dL (0.6-1.0) Estimated GFR (Cockcroft-Gault) 72.2 Glucose Level 77 mg/dL (70-99) Calcium Level 9.0 mg/dL (8.5-10.1) Laboratory Tests Test 11/05/16 18:45 11/06/16 00:40 11/06/16 05:00 Troponin I Quantitative 0.070 ng/mL (0.000-0.055) 0.072 ng/mL (0.000-0.055) White Blood Count 8.9 x10^3/uL (4.0-11.0) Red Blood Count 4.14 x10^6/uL (3.50-5.40) Hemoglobin 11.6 g/dL (12.0-15.5) Hematocrit 36.3 % (36.0-47.0) Mean Corpuscular Volume 88 fL (79-100) Mean Corpuscular Hemoglobin 28 pg (25-35) Mean Corpuscular Hemoglobin Concent 32 g/dL (31-37) Red Cell Distribution Width 15.2 % (11.5-14.5) Platelet Count 223 x10^3/uL (140-400) Neutrophils (%) (Auto) 62 % (31-73) Lymphocytes (%) (Auto) 23 % (24-48) Monocytes (%) (Auto) 13 % (0-9) Eosinophils (%) (Auto) 1 % (0-3) Basophils (%) (Auto) 1 % (0-3) Neutrophils # (Auto) 5.5 x10^3uL (1.8-7.7) Lymphocytes # (Auto) 2.1 x10^3/uL (1.0-4.8) Monocytes # (Auto) 1.2 x10^3/uL (0.0-1.1) Eosinophils # (Auto) 0.1 x10^3/uL (0.0-0.7) Basophils # (Auto) 0.1 x10^3/uL (0.0-0.2) Sodium Level 144 mmol/L (136-145) Potassium Level 3.7 mmol/L (3.5-5.1) Chloride Level 109 mmol/L (98-107) Carbon Dioxide Level 25 mmol/L (21-32) Anion Gap 10 (6-14) Blood Urea Nitrogen 24 mg/dL (7-20) Creatinine 0.9 mg/dL (0.6-1.0) Estimated GFR (Cockcroft-Gault) 72.2 Glucose Level 77 mg/dL (70-99) Calcium Level 9.0 mg/dL (8.5-10.1) Medications Current Medications Aspirin (Children'S Aspirin) 324 mg 1X ONCE PO Last administered on 11/05/16 10:38; Start 11/05/16 at 10:15; Stop 11/05/16 at 10:16; Status DC Sodium Chloride 1,000 ml @ 1,000 mls/hr Q1H IV Last administered on 11/05/16 10:36; Start 11/05/16 at 10:15; Stop 11/05/16 at 11:14; Status DC Sodium Chloride (Normal Saline Flush) 10 ml QSHIFT PRN IV AFTER MEDS AND BLOOD DRAWS; Start 11/05/16 at 10:00 Diltiazem HCl (Cardizem) 20 mg 1X ONCE IVP Last administered on 11/05/16 10:41 ; Start 11/05/16 at 10:30; Stop 11/05/16 at 10:31; Status DC Ondansetron HCl (Zofran) 4 mg PRN Q8HRS PRN IV NAUSEA/VOMITING Last administered on 11/06/16 09:25; Start 11/05/16 at 12:45; Stop 11/06/16 at 11:23; Status DC Fentanyl Citrate (Fentanyl 2ml Vial) 50 mcg PRN Q2HR PRN IV PAIN; Start at 12:45; Stop 11/06/16 at 12:44; Status DC Sodium Chloride 1,000 ml @ 80 mls/hr [id number] IV ; Start 11/05/16 at 12:42; Stop 11/06/16 at 12:41; Status DC Diltiazem HCl 125 mg/Dextrose 125 ml @ 0 mls/hr CONT PRN IV SEE I/O RECORD Last administered on 11/06/16 10:50; Start 11/05/16 at 15:00 Diltiazem HCl (Cardizem 24hr Cd) 180 mg DAILY PO Last administered on 11/06/16 09:00; Start 11/06/16 at 09:00 Hydralazine HCl (Apresoline) 50 mg TID PO Last administered on 11/05/16 20:43; Start 11/05/16 at 21:00 Metoprolol Tartrate (Lopressor) 12.5 mg BID PO ; Start 11/05/16 at 21:00; Stop at 21:00; Status DC Metoprolol Tartrate (Lopressor) 25 mg BID PO Last administered on 11/05/16 20: 44; Start 11/05/16 at 21:00; Stop 11/06/16 at 10:22; Status DC Apixaban (Eliquis) 2.5 mg BID PO Last administered on 11/06/16 09:09; Start 11/05/16 at 21:00 Aspirin (Children'S Aspirin) 81 mg DAILY08 PO Last administered on 11/06/16 08: 00; Start 11/06/16 at 08:00 Simvastatin (Zocor) 20 mg QHS PO Last administered on 11/05/16 20:43; Start 11/05/16 at 21:00 Tamsulosin HCl (Flomax) 0.4 mg QHS PO Last administered on 11/05/16 20:43; Start 11/05/16 at 21:00 Losartan Potassium (Cozaar) 100 mg DAILY PO ; Start 11/06/16 at 09:00 Acetaminophen (Tylenol) 650 mg PRN Q6HRS PRN PO FEVER Last administered on 05:02; Start 11/05/16 at 17:00 Ondansetron HCl (Zofran) 4 mg PRN Q6HRS PRN IV NAUSEA/VOMITING; Start 11/05/16 at 17:00 Morphine Sulfate 2 mg PRN Q2HR PRN IV PAIN; Start 11/05/16 at 17:00 Tramadol HCl (Ultram) 50 mg PRN Q6HRS PRN PO PAIN Last administered on 02:19; Start 11/05/16 at 17:00 Hydralazine HCl (Apresoline) 10 mg PRN Q4HRS PRN IVP ELEVATED BP, SEE COMMENTS ; Start 11/05/16 at 17:00 Docusate Sodium (Colace) 100 mg PRN DAILY PRN PO CONSTIPATION; Start 11/05/16 at 17:00 Digoxin (Lanoxin) 250 mcg 1X ONCE IV Last administered on 11/06/16 09:25; Start 11/06/16 at 09:30; Stop 11/06/16 at 09:31; Status DC Metoprolol Tartrate (Lopressor) 25 mg BID PO Last administered on 11/06/16 10: 42; Start 11/06/16 at 10:30 Sodium Chloride 1,000 ml @ 100 mls/hr 1X ONCE IV Last administered on 10:50; Start 11/06/16 at 11:00; Stop 11/06/16 at 20:59 Info (Anti-Coagulation Monitoring By Pharmacy) 1 each PRN DAILY PRN [facility] SEE COMMENTS; Start 11/06/16 at 11:30 Active Scripts Active Flomax (Tamsulosin Hcl) 0.4 Mg Cap.er.24h 0.4 Mg PO QHS Metoprolol Tartrate 25 Mg Tablet 12.5 Mg PO BID Hydralazine Hcl 50 Mg Tablet 50 Mg PO TID Diltiazem 24Hr Cd (Diltiazem HCl) 180 Mg Cap.er.24h 180 Mg PO DAILY Eliquis (Apixaban) 2.5 Mg Tablet 2.5 Mg PO BID Reported Simvastatin 20 Mg Tablet 1 Tab PO QHS Aspirin 81 Mg Tab.chew 1 Tab PO DAILY Losartan Potassium 100 Mg Tablet 100 Mg PO DAILY Vitals/I & O Vital Sign - Last 24 Hours 11/05/16 11/05/16 11/05/16 11/05/16 16:09 16:41 19:05 19:27 Temp 97.8 98.2 97.8 98.2 Pulse 105 73 Resp 18 18 B/P (MAP) 105/69 (81) 142/62 (88) Pulse Ox 99 99 O2 Delivery Room Air Room Air Room Air Room Air 11/05/16 11/05/16 11/05/16 11/06/16 20:43 20:44 23:05 02:19 Temp 98.6 98.6 Pulse 73 73 65 Resp 16 16 B/P (MAP) 142/62 142/62 147/65 (92) Pulse Ox 99 O2 Delivery Room Air Room Air 11/06/16 11/06/16 11/06/16 11/06/16 03:00 03:12 07:00 07:40 Temp 98.2 97.9 98.2 97.9 Pulse 91 102 Resp 16 16 18 B/P (MAP) 138/75 (96) 125/80 (95) Pulse Ox 99 99 98 O2 Delivery Room Air Room Air Room Air Room Air 11/06/16 11/06/16 11/06/16 11/06/16 09:00 09:00 09:00 09:19 Pulse 90 115 115 132 B/P (MAP) 104/62 96/49 96/49 96/49 (65) 11/06/16 11/06/16 11/06/16 11/06/16 09:25 10:04 10:42 11:00 Temp 98.0 98.0 Pulse 135 110 90 64 Resp 18 B/P (MAP) 96/49 119/64 (82) 104/62 120/62 (81) Pulse Ox 98 O2 Delivery Room Air Intake and Output 11/05/16 11/05/16 11/06/16 15:00 23:00 07:00 Intake Total 240 ml Output Total 1 ml Balance 240 ml -1 ml VIVIAN SCHWARTZ MD Nov 06, 2016 15:14
--- NOTE | 2016-11-06 15:33 | PDOC2 ---
CONSULT Date of Consult Date of Consult DATE: 11/06/16 TIME: 15:28 Reason for Consult Reason for Consult: chest pain Referring Physician Referring Physician: Dr. Murphy Identification/Chief Complaint Chief Complaint Chest pain Problems: Source Source: Patient History of Present Illness Reason for Visit: The patient is an 86-year-old female with a history of atrial fibrillation and hypertension. Patient was admitted through the emergency room for episodes of chest discomfort. The pain has totally resolved. It is somewhat atypical and not increased with exertion. An echocardiogram from September of this year shows a normal ejection fraction, mild left ventricular hypertrophy and mild mitral and tricuspid regurgitation. Initial troponin is not significantly elevated. The patient is resting comfortably in bed. Past Medical History Cardiovascular: HTN, Hyperlipidemia Pulmonary: No pertinent hx CENTRAL NERVOUS SYSTEM: CVA, Other GI: Irritable bowel disease Heme/Onc: Cancer Hepatobiliary: No pertinent hx Psych: No pertinent hx Musculoskeletal: Osteoarthritis Rheumatologic: No pertinent hx Infectious disease: No pertinent hx Renal/: Chronic renal insuff Endocrine: No pertinent hx Past Surgical History Past Surgical History: Total knee replacement, Hysterectomy, No pertinent history (right lumpectomy for breast cancer) Family History Family History: Hypertension Social History No ALCOHOL: none Drugs: None Lives: with Family Current Problem List Problem List Problems Medical Problems: (1) Chest pain Status: Acute (2) Dyspnea on exertion Status: Acute (3) Hypertension Status: Acute Current Medications Current Medications Current Medications Aspirin (Children'S Aspirin) 324 mg 1X ONCE PO Last administered on 11/05/16 10:38; Start 11/05/16 at 10:15; Stop 11/05/16 at 10:16; Status DC Sodium Chloride 1,000 ml @ 1,000 mls/hr Q1H IV Last administered on 11/05/16 10:36; Start 11/05/16 at 10:15; Stop 11/05/16 at 11:14; Status DC Sodium Chloride (Normal Saline Flush) 10 ml QSHIFT PRN IV AFTER MEDS AND BLOOD DRAWS; Start 11/05/16 at 10:00 Diltiazem HCl (Cardizem) 20 mg 1X ONCE IVP Last administered on 11/05/16 10:41 ; Start 11/05/16 at 10:30; Stop 11/05/16 at 10:31; Status DC Ondansetron HCl (Zofran) 4 mg PRN Q8HRS PRN IV NAUSEA/VOMITING Last administered on 11/06/16 09:25; Start 11/05/16 at 12:45; Stop 11/06/16 at 11:23; Status DC Fentanyl Citrate (Fentanyl 2ml Vial) 50 mcg PRN Q2HR PRN IV PAIN; Start at 12:45; Stop 11/06/16 at 12:44; Status DC Sodium Chloride 1,000 ml @ 80 mls/hr [id number] IV ; Start 11/05/16 at 12:42; Stop 11/06/16 at 12:41; Status DC Diltiazem HCl 125 mg/Dextrose 125 ml @ 0 mls/hr CONT PRN IV SEE I/O RECORD Last administered on 11/06/16 10:50; Start 11/05/16 at 15:00 Diltiazem HCl (Cardizem 24hr Cd) 180 mg DAILY PO Last administered on 11/06/16 09:00; Start 11/06/16 at 09:00 Hydralazine HCl (Apresoline) 50 mg TID PO Last administered on 11/05/16 20:43; Start 11/05/16 at 21:00 Metoprolol Tartrate (Lopressor) 12.5 mg BID PO ; Start 11/05/16 at 21:00; Stop at 21:00; Status DC Metoprolol Tartrate (Lopressor) 25 mg BID PO Last administered on 11/05/16 20: 44; Start 11/05/16 at 21:00; Stop 11/06/16 at 10:22; Status DC Apixaban (Eliquis) 2.5 mg BID PO Last administered on 11/06/16 09:09; Start 11/05/16 at 21:00 Aspirin (Children'S Aspirin) 81 mg DAILY08 PO Last administered on 11/06/16 08: 00; Start 11/06/16 at 08:00 Simvastatin (Zocor) 20 mg QHS PO Last administered on 11/05/16 20:43; Start 11/05/16 at 21:00 Tamsulosin HCl (Flomax) 0.4 mg QHS PO Last administered on 11/05/16 20:43; Start 11/05/16 at 21:00 Losartan Potassium (Cozaar) 100 mg DAILY PO ; Start 11/06/16 at 09:00 Acetaminophen (Tylenol) 650 mg PRN Q6HRS PRN PO FEVER Last administered on 05:02; Start 11/05/16 at 17:00 Ondansetron HCl (Zofran) 4 mg PRN Q6HRS PRN IV NAUSEA/VOMITING; Start 11/05/16 at 17:00 Morphine Sulfate 2 mg PRN Q2HR PRN IV PAIN; Start 11/05/16 at 17:00 Tramadol HCl (Ultram) 50 mg PRN Q6HRS PRN PO PAIN Last administered on 02:19; Start 11/05/16 at 17:00 Hydralazine HCl (Apresoline) 10 mg PRN Q4HRS PRN IVP ELEVATED BP, SEE COMMENTS ; Start 11/05/16 at 17:00 Docusate Sodium (Colace) 100 mg PRN DAILY PRN PO CONSTIPATION; Start 11/05/16 at 17:00 Digoxin (Lanoxin) 250 mcg 1X ONCE IV Last administered on 11/06/16 09:25; Start 11/06/16 at 09:30; Stop 11/06/16 at 09:31; Status DC Metoprolol Tartrate (Lopressor) 25 mg BID PO Last administered on 11/06/16 10: 42; Start 11/06/16 at 10:30 Sodium Chloride 1,000 ml @ 100 mls/hr 1X ONCE IV Last administered on 10:50; Start 11/06/16 at 11:00; Stop 11/06/16 at 20:59 Info (Anti-Coagulation Monitoring By Pharmacy) 1 each PRN DAILY PRN MC SEE COMMENTS; Start 11/06/16 at 11:30 Active Scripts Active Flomax (Tamsulosin Hcl) 0.4 Mg Cap.er.24h 0.4 Mg PO QHS Metoprolol Tartrate 25 Mg Tablet 12.5 Mg PO BID Hydralazine Hcl 50 Mg Tablet 50 Mg PO TID Diltiazem 24Hr Cd (Diltiazem HCl) 180 Mg Cap.er.24h 180 Mg PO DAILY Eliquis (Apixaban) 2.5 Mg Tablet 2.5 Mg PO BID Reported Simvastatin 20 Mg Tablet 1 Tab PO QHS Aspirin 81 Mg Tab.chew 1 Tab PO DAILY Losartan Potassium 100 Mg Tablet 100 Mg PO DAILY Allergies Allergies: Coded Allergies: Penicillins (Verified Allergy, Intermediate, Rash, 05/30/13) ROS General: YES: Fatigue Cardiovascular: yes Chest Pain Physical Exam General: No acute distress HEENT: Atraumatic Lungs: Clear to auscultation Heart: Regular rate, Normal S2 Abdomen: Normal bowel sounds Vitals VITALS Vital Signs Date Time Temp Pulse Resp B/P (MAP) Pulse Ox O2 Delivery O2 Flow Rate FiO2 11/06/16 15:00 98.0 59 20 129/54 (79) 99 Room Air 98.0 Labs Labs Laboratory Tests Test 11/05/16 11:00 11/05/16 12:25 11/05/16 18:45 11/06/16 00:40 White Blood Count 8.9 x10^3/uL (4.0-11.0) Red Blood Count 4.25 x10^6/uL (3.50-5.40) Hemoglobin 11.9 g/dL (12.0-15.5) Hematocrit 36.9 % (36.0-47.0) Mean Corpuscular Volume 87 fL (79-100) Mean Corpuscular Hemoglobin 28 pg (25-35) Mean Corpuscular Hemoglobin Concent 32 g/dL (31-37) Red Cell Distribution Width 14.6 % (11.5-14.5) Platelet Count 221 x10^3/uL (140-400) Neutrophils (%) (Auto) 68 % (31-73) Lymphocytes (%) (Auto) 22 % (24-48) Monocytes (%) (Auto) 9 % (0-9) Eosinophils (%) (Auto) 1 % (0-3) Basophils (%) (Auto) 0 % (0-3) Neutrophils # (Auto) 6.1 x10^3uL (1.8-7.7) Lymphocytes # (Auto) 1.9 x10^3/uL (1.0-4.8) Monocytes # (Auto) 0.8 x10^3/uL (0.0-1.1) Eosinophils # (Auto) 0.0 x10^3/uL (0.0-0.7) Basophils # (Auto) 0.0 x10^3/uL (0.0-0.2) Sodium Level 143 mmol/L (136-145) Potassium Level 3.7 mmol/L (3.5-5.1) Chloride Level 107 mmol/L (98-107) Carbon Dioxide Level 24 mmol/L (21-32) Anion Gap 12 (6-14) Blood Urea Nitrogen 19 mg/dL (7-20) Creatinine 0.8 mg/dL (0.6-1.0) Estimated GFR (Cockcroft-Gault) 82.7 Glucose Level 113 mg/dL (70-99) Calcium Level 9.6 mg/dL (8.5-10.1) Magnesium Level 1.9 mg/dL (1.8-2.4) Total Bilirubin 0.2 mg/dL (0.2-1.0) Direct Bilirubin 0.1 mg/dL (0.0-0.2) Aspartate Amino Transf (AST/SGOT) 16 U/L (15-37) Alanine Aminotransferase (ALT/SGPT) 17 U/L (14-59) Alkaline Phosphatase 95 U/L (46-116) Creatine Kinase 32 U/L (26-192) Creatine Kinase MB (Mass) 0.6 ng/mL (0.0-3.6) Creatine Kinase MB Relative Index 1.9 % (0-4) Troponin I Quantitative 0.021 ng/mL (0.000-0.055) 0.070 ng/mL (0.000-0.055) 0.072 ng/mL (0.000-0.055) WO-Qaj-G-Type Natriuretic Peptide 1228 pg/mL (0-449) Total Protein 7.6 g/dL (6.4-8.2) Albumin 3.5 g/dL (3.4-5.0) Lipase 204 U/L (73-393) Thyroid Stimulating Hormone (TSH) 1.547 uIU/mL (0.358-3.74) Urine Collection Type Unknown Urine Color Yellow Urine Clarity Clear Urine pH 6.5 Urine Specific [place] <=1.005 Urine Protein Negative mg/dL (NEG-TRACE) Urine Glucose (UA) Negative mg/dL (NEG) Urine Ketones (Stick) Negative mg/dL (NEG) Urine Blood Negative (NEG) Urine Nitrite Negative (NEG) Urine Bilirubin Negative (NEG) Urine Urobilinogen Dipstick 0.2 mg/dL (0.2 mg/dL) Urine Leukocyte Esterase Small (NEG) Urine RBC 0 /HPF (0-2) Urine WBC 5-10 /HPF (0-4) Urine Squamous Epithelial Cells Few /LPF Urine Bacteria Few /HPF (0-FEW) Test 11/06/16 05:00 White Blood Count 8.9 x10^3/uL (4.0-11.0) Red Blood Count 4.14 x10^6/uL (3.50-5.40) Hemoglobin 11.6 g/dL (12.0-15.5) Hematocrit 36.3 % (36.0-47.0) Mean Corpuscular Volume 88 fL (79-100) Mean Corpuscular Hemoglobin 28 pg (25-35) Mean Corpuscular Hemoglobin Concent 32 g/dL (31-37) Red Cell Distribution Width 15.2 % (11.5-14.5) Platelet Count 223 x10^3/uL (140-400) Neutrophils (%) (Auto) 62 % (31-73) Lymphocytes (%) (Auto) 23 % (24-48) Monocytes (%) (Auto) 13 % (0-9) Eosinophils (%) (Auto) 1 % (0-3) Basophils (%) (Auto) 1 % (0-3) Neutrophils # (Auto) 5.5 x10^3uL (1.8-7.7) Lymphocytes # (Auto) 2.1 x10^3/uL (1.0-4.8) Monocytes # (Auto) 1.2 x10^3/uL (0.0-1.1) Eosinophils # (Auto) 0.1 x10^3/uL (0.0-0.7) Basophils # (Auto) 0.1 x10^3/uL (0.0-0.2) Sodium Level 144 mmol/L (136-145) Potassium Level 3.7 mmol/L (3.5-5.1) Chloride Level 109 mmol/L (98-107) Carbon Dioxide Level 25 mmol/L (21-32) Anion Gap 10 (6-14) Blood Urea Nitrogen 24 mg/dL (7-20) Creatinine 0.9 mg/dL (0.6-1.0) Estimated GFR (Cockcroft-Gault) 72.2 Glucose Level 77 mg/dL (70-99) Calcium Level 9.0 mg/dL (8.5-10.1) Laboratory Tests Test 11/05/16 18:45 11/06/16 00:40 11/06/16 05:00 Troponin I Quantitative 0.070 ng/mL (0.000-0.055) 0.072 ng/mL (0.000-0.055) White Blood Count 8.9 x10^3/uL (4.0-11.0) Red Blood Count 4.14 x10^6/uL (3.50-5.40) Hemoglobin 11.6 g/dL (12.0-15.5) Hematocrit 36.3 % (36.0-47.0) Mean Corpuscular Volume 88 fL (79-100) Mean Corpuscular Hemoglobin 28 pg (25-35) Mean Corpuscular Hemoglobin Concent 32 g/dL (31-37) Red Cell Distribution Width 15.2 % (11.5-14.5) Platelet Count 223 x10^3/uL (140-400) Neutrophils (%) (Auto) 62 % (31-73) Lymphocytes (%) (Auto) 23 % (24-48) Monocytes (%) (Auto) 13 % (0-9) Eosinophils (%) (Auto) 1 % (0-3) Basophils (%) (Auto) 1 % (0-3) Neutrophils # (Auto) 5.5 x10^3uL (1.8-7.7) Lymphocytes # (Auto) 2.1 x10^3/uL (1.0-4.8) Monocytes # (Auto) 1.2 x10^3/uL (0.0-1.1) Eosinophils # (Auto) 0.1 x10^3/uL (0.0-0.7) Basophils # (Auto) 0.1 x10^3/uL (0.0-0.2) Sodium Level 144 mmol/L (136-145) Potassium Level 3.7 mmol/L (3.5-5.1) Chloride Level 109 mmol/L (98-107) Carbon Dioxide Level 25 mmol/L (21-32) Anion Gap 10 (6-14) Blood Urea Nitrogen 24 mg/dL (7-20) Creatinine 0.9 mg/dL (0.6-1.0) Estimated GFR (Cockcroft-Gault) 72.2 Glucose Level 77 mg/dL (70-99) Calcium Level 9.0 mg/dL (8.5-10.1) Assessment/Plan Assessment/Plan 1. Chest pain. Initial EKG shows no acute changes. Initial lab testing shows no significant elevation in troponin. Echocardiogram from 3 months ago shows normal LV function. We'll continue home medications. We'll rule out for myocardial infarction. Consider MPI testing tomorrow. 2. Atrial fibrillation. Rate controlled and continue present medications. 3. Hypertension. Blood pressure is under reasonable control. Continue medications and monitor. 4. Hyperlipidemia. Continue medications. Check a lipid panel in the morning. 5. History of a CVA. We'll obtain old records. Thank you for allowing us to participate in the care of your patient. AYSE MELGAR MD Nov 06, 2016 15:33
[2016-11-06] MEDS: TAMSULOSIN 0.4 MG CAP.ER.24H. PO SCH (21:26)
[2016-11-06] MEDS: SIMVASTATIN 20 MG TABLET PO SCH (21:27)
[2016-11-07 03:00] VITALS: BP 155/79
[2016-11-07 07:00] VITALS: BP 135/90
[2016-11-07] MEDS: LOSARTAN POTASSIUM 50 MG TABLET. PO SCH (09:00)
[2016-11-07] MEDS: APIXABAN 2.5 MG TABLET. PO SCH ×2 (09:16→20:41)
[2016-11-07] MEDS: METOPROLOL TART IMMED RELEASE 25 MG TABLET. PO SCH ×3 (09:17→20:42)
[2016-11-07] MEDS: ASPIRIN CHEWABLE 81 MG TABLET. PO SCH ×2 (09:18→09:26)
[2016-11-07] MEDS ORDERED: METOPROLOL TARTRATE 5 MG/5 ML VIAL. IVP ONE (09:30)
[2016-11-07] MEDS ORDERED: DIGOXIN IV 500 MCG/2 ML AMPUL. IV ONE (09:30)
--- NOTE | 2016-11-07 09:30 | PDOC ---
CARDIO Progress Notes Date and Time Date of Service 11/07/2016 Time of Evaluation 0915 Subjective Subjective: No Chest Pain, No shortness of breath, No Palpitations, No Dizziness Vitals Vitals Vital Signs Date Time Temp Pulse Resp B/P (MAP) Pulse Ox O2 Delivery O2 Flow Rate FiO2 11/07/16 09:17 135 135/90 11/07/16 07:00 97.9 18 98 97.9 11/07/16 03:00 Room Air Weight Weight [ ] Input and Output Intake and Output Intake and Output 11/07/16 07:00 Intake Total 576 ml Balance 576 ml Intake Oral 300 ml Other 276 ml # Voids 2 # Bowel Movements 1 Physical Exam HEENT: Neck Supple W Full Motion Chest: Symmetric LUNGS: Clear to Auscultation Heart: S1S2, irregularly irregular (AFIB) Abdomen: Soft N/T Extremities: No Calf Tenderness Neurology: alert, oriented, follow commands Assessment Assessment 1. Chest pain: likely from AFIB RVR. 2. AFIB RVR 3. 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 HTN 5. HLP Recommendations 1. RVR remains. Will bolus with Dig. Will increase metoprolol and continue with cardizem. 2. Will control HR and will proceed with MPI tomorrow if pt agrees to completely rule out ischemia. 3. Continue with eliquis for stroke prevention 4. Will hold off other BP meds to make room for AV heriberto blokcing agents adjustments. Discussed with JERRELL. YRIS LABOY APRN Nov 07, 2016 09:29
[2016-11-07 11:00] VITALS: BP 117/80
--- NOTE | 2016-11-07 14:17 | PDOC ---
PROGRESS NOTES Chief Complaint Chief Complaint POLLARD, CP ASSESSMENT AND PLAN: 1. Dyspnea, CP: most likely 2/2 RVR. improving 2. Afib w/RVR: much better controlled on current CCB, BB regimen 3. Aortic stenosis: mild-mod on echo in September 2016 4. CAD: no acute issues; awaiting MPI 5. HTN: accelerated at admit; well controlled now 6. HLD: on statin 7. CVA: L sided hemiparesis 8. OAC: on eliquis 9. DISPO: Poss home in AM; OT/PT eval History of Present Illness History of Present Illness feels ok, no c/o. denies SOB or CP Vitals Vitals Vital Signs Date Time Temp Pulse Resp B/P (MAP) Pulse Ox O2 Delivery O2 Flow Rate FiO2 11/07/16 13:47 68 117/80 11/07/16 11:00 97.7 20 98 Room Air 97.7 Physical Exam General: Alert, Oriented X3, Cooperative, No acute distress Heart: Regular rate Lungs: Clear Abdomen: Normal bowel sounds, Soft Extremities: No clubbing, No edema Skin: No rashes, No significant lesion AYLIN THAKKAR MD Nov 07, 2016 14:17
[2016-11-07 15:12] VITALS: BP 143/56
[2016-11-07] MEDS: ANTI-COAG MONITOR BY PHARMACY. MC PRN (17:06)
[2016-11-07 19:16] VITALS: BP 141/69
[2016-11-07] MEDS: TAMSULOSIN 0.4 MG CAP.ER.24H. PO SCH (20:40)
[2016-11-07] MEDS: SIMVASTATIN 20 MG TABLET PO SCH (20:41)
[2016-11-07 23:09] VITALS: BP 151/57
[2016-11-08] MEDS: METOPROLOL TART IMMED RELEASE 25 MG TABLET. PO SCH ×3 (00:07→12:06)
[2016-11-08 03:17] VITALS: BP 150/65
[2016-11-08 04:22] LABS: BASO % 0 % (0-3); EOS % 2 % (0-3); HEMATOCRIT 35.3 % (36.0-47.0); HEMOGLOBIN 11.3 g/dL (12.0-15.5); LYMPH # 2.5 x10^3/uL (1.0-4.8); LYMPH % 29 % (24-48); MEAN CORPUSCULAR HEMOGLOBIN 28 pg (25-35); MEAN CORPUSCULAR HGB CONC 32 g/dL (31-37); MEAN CORPUSCULAR VOLUME 88 fL (79-100); MONO % 9 % (0-9); NEUT % 60 % (31-73); PLATELET COUNT 223 x10^3/uL (140-400); RED BLOOD COUNT 4.04 x10^6/uL (3.50-5.40); RED CELL DISTRIBUTION WIDTH 14.7 % (11.5-14.5); WHITE BLOOD COUNT 8.8 x10^3/uL (4.0-11.0)
[2016-11-08 04:39] LABS: CALCIUM 9.1 mg/dL (8.5-10.1); CREATININE 0.8 mg/dL (0.6-1.0); GFR 82.7; MAGNESIUM 1.8 mg/dL (1.8-2.4); POTASSIUM 3.7 mmol/L (3.5-5.1)
[2016-11-08 07:00] VITALS: BP 100/76
[2016-11-08] MEDS ORDERED: REGADENOSON 0.4 MG/5 ML DISP.SYRIN. IV ONE (08:00)
[2016-11-08] MEDS: ANTI-COAG MONITOR BY PHARMACY. MC PRN (08:15)
[2016-11-08] MEDS: LOSARTAN POTASSIUM 50 MG TABLET. PO SCH (10:30)
[2016-11-08] MEDS: APIXABAN 2.5 MG TABLET. PO SCH (10:30)
[2016-11-08 11:00] VITALS: BP 114/67
--- NOTE | 2016-11-08 13:18 | RAD ---
APPROVED REPORT Test Type: Pharmacological Stress Nurse/Tech: Amanda Cárdenas R.N. Test Indications: chest pain Cardiac History: Hypertension, a fib Medications: See Electronic Medical Record Medical History: See Electronic Medical Record Resting ECG: A. fib Resting Heart Rate: 84 bpm Resting Blood Pressure: 168/72mmHg Pretest Chest Pain: No chest pain Nurse/Tech Notes S1S2, lungs sound clear Consent: The procedure was explained to the patient in lay terms. Informed consent was witnessed. Diego eout was entered into [employer]. History and Stress Test performed by Amanda Cárdenas R.N. Pharm. Details Pharmacologic stress testing was performed using 0.4mg per 5ml of regadenoson given intravenously ove r 7-10 seconds. Stress Symptoms Dyspnea POST EXERCISE Reason for Termination: Infusion complete Max HR: 141 bpm Max Blood Pressure: 117/56mmHg Blood Pressure response to exercise: Blunted blood pressure during stress. Chest Pain: No. Arrhythmia: Yes. continues in A, fib ST Change: No. INTERPRETATION Stress EKG Conclusion: No evidence of stress induced EKG changes. Imaging Protocol IMAGE PROTOCOL: Rest Tc-99m/stress Tc-99m 1 day Rest: Stress: Viability: Radiopharm.Tc99m [id number] Sestamibi Dose9.9mCi 35.8mCi Duration 15min. 10min. Img Date 11/08/2016 11/08/2016 Inj-Img [id number]. 75min. Rest Admin Site:IV - Left HandAdministrator:ASHIA Perkins Stress Admin Site: IV - Left HandAdministrator: NIKUNJ Vincent, ARRT (R)(N) STRESS DATA End Diast. Vol.36.0mlAv. Heart Rate90.0bpm End Syst. Vol.13.0mlCO Index BSA2.1L/min Myocardial Mass81.0gEject. Yrzrnzje65.0% Stress Rates Pk. Fill Rate3.37EDV/secLVtime Pk. Fill 121.74msec Pk. Empty Rate3.71ESV/secLVtime Pk. Dmkue704.99msec 04/05 Pk. Fill1.82EDV/sec Stress Scores Regional WT3.00Summed WT38.00 Regional WM0.00Summed WM13.00 LV Perfusion There is severe motion artifact but within these limitations, no major perfusion defect is noted in t he stress and rest images. Note is made of TID but likely secondary to malalignment of stress/rest images due to motion artifact rather than true balanced ischemia. LV Perf. Quant 17 Seg. SSS4.00 17 Seg. SRS2.00 17 Seg. SDS2.00 Stress Defect Extent (% LAD)0.00Rest Defect Extent (% LAD)0.00Rev. Defect Extent (% LAD)0.00 Stress Defect Extent (% LCX) 38.80Rest Defect Extent (% LCX)22.50Rev. Defect Extent (% LCX)0.00 Stress Defect Extent (% RCA)0.00Rest Defect Extent (% RCA)0.00Rev. Defect Extent (% RCA)0.00 Stress Defect Extent (% SARAH)6.70Rest Defect Extent (% SARAH)3.90Rev. Defect Extent (% SARAH)0.00 Other Information Quality:Poor Risk Assessment: Low-Moderate Risk Conclusion 1. No EKG changes to suggest ischemia with vasodilator testing 2. Poor study due to significant motion artifact. 3. There is severe motion artifact but within these limitations, no major perfusion defect is noted i n the stress and rest images. 4. Note is made of TID but likely secondary to malalignment of stress/rest images due to motion artif act rather than true balanced ischemia. Recommendations If there is high suspicion for coronary disease, recommend alternative testing (Dobutamine echo or ca rdiac cath).
--- NOTE | 2016-11-08 14:23 | PDOC ---
PROGRESS NOTES Chief Complaint Chief Complaint POLLARD, CP ASSESSMENT AND PLAN: 1. Dyspnea, CP: most likely 2/2 RVR. improving 2. Afib w/RVR: much better controlled on current CCB, BB regimen 3. Aortic stenosis: mild-mod on echo in September 2016 4. CAD: no acute issues; awaiting MPI 5. HTN: accelerated at admit; well controlled now 6. HLD: on statin 7. CVA: L sided hemiparesis 8. OAC: on eliquis 9. DISPO: OT/PT eval History of Present Illness History of Present Illness feels ok, no c/o. denies SOB or CP Vitals Vitals Vital Signs Date Time Temp Pulse Resp B/P (MAP) Pulse Ox O2 Delivery O2 Flow Rate FiO2 11/08/16 12:06 68 100/76 11/08/16 11:00 98.8 19 100 Room Air 98.8 Physical Exam General: Alert, Oriented X3, Cooperative, No acute distress Heart: Regular rate Lungs: Clear Abdomen: Normal bowel sounds, Soft Extremities: No clubbing, No edema Skin: No rashes, No significant lesion Labs LABS Laboratory Tests Test 11/08/16 03:51 White Blood Count 8.8 x10^3/uL (4.0-11.0) Red Blood Count 4.04 x10^6/uL (3.50-5.40) Hemoglobin 11.3 g/dL (12.0-15.5) Hematocrit 35.3 % (36.0-47.0) Mean Corpuscular Volume 88 fL (79-100) Mean Corpuscular Hemoglobin 28 pg (25-35) Mean Corpuscular Hemoglobin Concent 32 g/dL (31-37) Red Cell Distribution Width 14.7 % (11.5-14.5) Platelet Count 223 x10^3/uL (140-400) Neutrophils (%) (Auto) 60 % (31-73) Lymphocytes (%) (Auto) 29 % (24-48) Monocytes (%) (Auto) 9 % (0-9) Eosinophils (%) (Auto) 2 % (0-3) Basophils (%) (Auto) 0 % (0-3) Neutrophils # (Auto) 5.3 x10^3uL (1.8-7.7) Lymphocytes # (Auto) 2.5 x10^3/uL (1.0-4.8) Monocytes # (Auto) 0.8 x10^3/uL (0.0-1.1) Eosinophils # (Auto) 0.2 x10^3/uL (0.0-0.7) Basophils # (Auto) 0.0 x10^3/uL (0.0-0.2) Sodium Level 143 mmol/L (136-145) Potassium Level 3.7 mmol/L (3.5-5.1) Chloride Level 108 mmol/L (98-107) Carbon Dioxide Level 25 mmol/L (21-32) Anion Gap 10 (6-14) Blood Urea Nitrogen 20 mg/dL (7-20) Creatinine 0.8 mg/dL (0.6-1.0) Estimated GFR (Cockcroft-Gault) 82.7 Glucose Level 99 mg/dL (70-99) Calcium Level 9.1 mg/dL (8.5-10.1) Magnesium Level 1.8 mg/dL (1.8-2.4) AYLIN THAKKAR MD Nov 08, 2016 14:23
[2016-11-08] MEDS ORDERED: METO50TA2 PO (14:39)
[2016-11-08 15:00] VITALS: BP 158/62
--- NOTE | 2016-11-08 15:52 | PDOC ---
CARDIO Progress Notes Date and Time Date of Service 11/08/16 Time of Evaluation 1330 Subjective Subjective: No Chest Pain, No shortness of breath, No Palpitations, No Dizziness Vitals Vitals Vital Signs Date Time Temp Pulse Resp B/P (MAP) Pulse Ox O2 Delivery O2 Flow Rate FiO2 11/08/16 14:49 68 119/72 11/08/16 11:00 98.8 19 100 Room Air 98.8 Weight Weight [ ] Input and Output Intake and Output Intake and Output 11/08/16 07:00 Intake Total 200 ml Balance 200 ml Intake Oral 200 ml # Voids 6 Laboratory Labs Laboratory Tests Test 11/08/16 03:51 White Blood Count 8.8 x10^3/uL (4.0-11.0) Red Blood Count 4.04 x10^6/uL (3.50-5.40) Hemoglobin 11.3 g/dL (12.0-15.5) Hematocrit 35.3 % (36.0-47.0) Mean Corpuscular Volume 88 fL (79-100) Mean Corpuscular Hemoglobin 28 pg (25-35) Mean Corpuscular Hemoglobin Concent 32 g/dL (31-37) Red Cell Distribution Width 14.7 % (11.5-14.5) Platelet Count 223 x10^3/uL (140-400) Neutrophils (%) (Auto) 60 % (31-73) Lymphocytes (%) (Auto) 29 % (24-48) Monocytes (%) (Auto) 9 % (0-9) Eosinophils (%) (Auto) 2 % (0-3) Basophils (%) (Auto) 0 % (0-3) Neutrophils # (Auto) 5.3 x10^3uL (1.8-7.7) Lymphocytes # (Auto) 2.5 x10^3/uL (1.0-4.8) Monocytes # (Auto) 0.8 x10^3/uL (0.0-1.1) Eosinophils # (Auto) 0.2 x10^3/uL (0.0-0.7) Basophils # (Auto) 0.0 x10^3/uL (0.0-0.2) Sodium Level 143 mmol/L (136-145) Potassium Level 3.7 mmol/L (3.5-5.1) Chloride Level 108 mmol/L (98-107) Carbon Dioxide Level 25 mmol/L (21-32) Anion Gap 10 (6-14) Blood Urea Nitrogen 20 mg/dL (7-20) Creatinine 0.8 mg/dL (0.6-1.0) Estimated GFR (Cockcroft-Gault) 82.7 Glucose Level 99 mg/dL (70-99) Calcium Level 9.1 mg/dL (8.5-10.1) Magnesium Level 1.8 mg/dL (1.8-2.4) Microbiology Micro Microbiology 11/05/16 Urine Culture - Final, Complete 11/05/16 Urine Culture Result 1 (POONAM) - Final, Complete Physical Exam HEENT: Neck Supple W Full Motion Chest: Symmetric LUNGS: Clear to Auscultation Heart: S1S2, irregularly irregular (AFIB,rate 65) Abdomen: Soft N/T Extremities: No Edema, No Calf Tenderness Neurology: alert, oriented, follow commands Assessment Assessment 1. Chest pain: likely from AFIB RVR. MPI without evidence of ischemia 2. AFIB RVR; rate better controlled. 3. 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 HTN; low-normotensive 5. HLP; statin therapy Recommendations 1. Rate better controlled with BB increase, but continues to have mild, intermittent tachycardia with activity. Resting HR in low 60's. Will continue same and convert to BID dosing. 2. Will plan for outpatient event monitor to monitor heart rhythm/rate. 3. Continue with eliquis for stroke prevention 4. May discharge from a CV standpoint and f/u in out office in 4 weeks as scheduled. CHRISTINA GALLARDO APRN Nov 08, 2016 15:52
[2016-11-08] MEDS ORDERED: METOPROLOL TART IMMED RELEASE 50 MG TABLET. PO SCH (21:00)
== END 2016-11-08 16:43 | disposition home health service (06) | DRG 309 ==
LOC: ER 09:41 → 2 SOUTH 12:44
PROVIDERS: ADMIT Internal Medicine; ATTEND Internal Medicine
DX: I48.91 Unspecified atrial fibrillation (principal); I69.354 Hemiplegia and hemiparesis following cerebral infarction affecting left non-dominant side; E78.00 Pure hypercholesterolemia, unspecified; E78.5 Hyperlipidemia, unspecified; I11.0 Hypertensive heart disease with heart failure; I25.10 Atherosclerotic heart disease of native coronary artery without angina pectoris; I50.9 Heart failure, unspecified; K58.9 Irritable bowel syndrome, unspecified; Z96.659 Presence of unspecified artificial knee joint; M19.90 Unspecified osteoarthritis, unspecified site; K59.00 Constipation, unspecified; Z82.49 Family history of ischemic heart disease and other diseases of the circulatory system; Z88.0 Allergy status to penicillin; Z85.3 Personal history of malignant neoplasm of breast; Z90.710 Acquired absence of both cervix and uterus; Z79.01 Long term (current) use of anticoagulants; I35.0 Nonrheumatic aortic (valve) stenosis; I34.0 Nonrheumatic mitral (valve) insufficiency; I07.1 Rheumatic tricuspid insufficiency
CPT/HCPCS: 36415; 71010; 78452; 80048; 80076; 81001; 82553; 83690; 83735; 83880; 84443; 84484; 85027; 87086; 93005; 93017; 96374; 96375; 96376; A9500; J1160; J2405; J2785; J3490; J7030; 97530; 97535; 99285-25